=== PATIENT | male | born 1945 | race Caucasian/White ===

== ENCOUNTER 2022-12-29 09:24 | Outpatient (CLI) | payer MEDICARE, OTHER ==
--- NOTE | 2022-12-29 10:05 | Sleep Patient Instructions ---
Sleep Center Visit Summary - Patient Visit Information Reason for Visit: Initial consult for evaluation of sleep disordered breathing and other sleep issues. - Patient Instructions Instructions Attached: Sleep Study, Sleep Clinic Visit Additional Instructions: You will be completing a sleep study, either an in-lab polysomnography (PSG) or home sleep study (HST). You will follow-up in the sleep care office after the sleep study is completed to hear the results and talk about therapy, if needed. You will be called by our office staff to schedule this appointment, but you may contact us with any questions. - Clinic Information Contact: [facility] [address] [place] [address] [email or web address] T: [phone]
--- NOTE | 2022-12-29 10:07 | SLEEP CARE CONSULTATION ---
Information from patient questionnaire entered by Darryl Campbell. I have reviewed and concur with the information entered by Darryl Campbell. This document represents the service I personally performed and the decisions made by me, Bhavya Mohamud ARNP. History of Present Illness Service Date and Time: 12/29/2022 09 Reason for Visit: New patient Chief Complaint: reports: Unrefreshed sleep, Snoring, Observed pauses in breathing Date of Onset: YRS Usual bedtime: 9-10PM Time it takes to fall asleep: 5MIN Snores at night: Yes Observed to quit breathing while asleep: No Sleeps alone due to snoring: No Number of times waking at night: 2-3 Reasons for waking at night: reports: Snoring, Bathroom, Other (NOISE, UNKNOWN). denies: Choking, Gasping for air Toss, Turn, or Twitch while sleeping: No Recalls having dreams: Yes Usually gets out of bed at: 8AM Feels refreshed in the morning: No Morning headache: Yes (occasionally) Sleepy or fatigued during the day: Yes Ever fallen asleep while driving: No Takes day naps: No Dreams during day naps: No Prior sleep studies: No Additional HPI information: I had the pleasure of seeing DOROTEO WOODARD today regarding the possibility of him having a sleep disorder. His current complaints are unrefreshed sleep, snoring and observed pauses in breathing. He states he had his second heart attack in September 2022 and he was having a hard time keeping oxygen level up. He was advised that he should have this checked out. He had a previous heart attack 3 years prior. He snores and has for his lifetime. His has told him in last 50+ years that he snores loudly and will sometimes stop breathing. He has woke himself up snoring at least 1-2 times a week. He sleeps mostly on left side and back. - Parasomnia Symptoms Ever been unable to move upon waking from sleep: No Walks in sleep: No Talks in sleep: Yes (sometimes, not often) Ever acted out dreams in sleep: Yes (has been kicking feet in bed) Ever felt weak in the knees when startled or emotional: No Bothered by creepy, crawly, restless sensations in legs: Yes (has RLS, off/on) Problems with memory or concentration: Yes (short term memory not good) Subjective Initial [place] Sleepiness Scale score: 7 (11/21/22) Past Medical History Past Medical History: reports: Hypertension, Arthritis, Coronary Heart Disease (4 stents), Hypothyroidism, GERD, Other (STAGE 3 KIDNEY DISEASE, 2 HEART ATTACKS) Social History The patient's occupation is a RE. Patient is and lives in [place]. Have you smoked in the past 12 months: No Alcohol use: Yes Alcohol amount and frequency: 3 drinks daily/FREQUENTLY Caffeine use: No Family History Family history of sleep disordered breathing: No Family Hx Sleep Apnea: Father: Snoring Allergies and Home Medications Known drug allergies: No Drug allergies reviewed: Yes Home medication list reviewed: Yes (see updated list in EMR) Review of Systems Weight gain over past 5 years: 10 Cardiovascular: reports: high blood pressure Gastrointestinal: reports: heartburn, diarrhea Urinary: reports: frequency Neurological: denies: headaches, head trauma Psychiatric: denies: anxiety, depression Ear/Nose/Throat: reports: dry mouth/throat, tonsillectomy (and adenoidectomy x 2), wisdom teeth removed Endocrine: reports: thyroid disease, sluggishness, too hot or cold, excessive thirst, increased appetite Musculoskeletal: reports: neck pain, back pain Physical Exam Vital signs obtained and entered by: DARRYL Begum MA Blood Pressure: 124/78 (LEFT ARM) Cuff size: regular Heart Rate: 63 O2 Saturation: 96 Height: 5 ft Weight: 154 lb 9.6 oz Body Mass Index: 30.2 BMI Classification: Obese Neck circumference: 15.25 Mouth and throat: narrow oropharynx Soft palate: long Hard palate: normal Uvula: normal Uvula visualization: 0% Mallampati Class IV Tongue: enlarged in size with teeth avelar on lateral edges Tonsils: absent bilaterally Neck: normal w/o lymphadenopathy or thyromegaly Heart: regular rate and rhythm Lungs: clear bilaterally Impression and Plan 1. Suspected Obstructive Sleep Apnea-Hypopnea Syndrome, as suggested by a history of loud and irregular snoring, observed cessation of breath while asleep, unrefreshed sleep, cognitive impairment, and excessive daytime sleepiness. Narrow oropharynx and obesity are common predisposing factors for obstructive sleep apnea-hypopnea syndrome. I recommend proceeding to polysomnography to confirm the diagnosis and to assess severity. If the patient has significant sleep disordered breathing, a manual CPAP titration study will also be performed to find the optimal treatment pressure. I informed the patient of what the sleep studies involve and after some discussion, obtained agreement to proceed. The pathophysiology of obstructive sleep apnea-hypopnea syndrome was discussed with the patient and health risks of cardiovascular and cerebrovascular disease if not treated. Risks of drowsy driving discussed in detail and patient advised to avoid long distance driving and to drum puller at the first sign of drowsiness. Patient agreed to plan. * Schedule polysomnography +- manual CPAP titration study and return in 1-2 weeks after the study to discuss result and initiate therapy. * Avoid long distance driving or driving when feeling sleepy. * Avoid alcohol, sedative and muscle relaxant around bedtime. * Attempt to lose weight. * Review instructions provided by trained office staff on how to prepare for the sleep study. * Return for follow-up after sleep study completed. Counseling Topics: Weight loss health impact Visit Type: In Office Time Spent with Patient (minutes): 30 Provider Statement: I spent 100% of the Face to Face Visit with the patient with greater than 50% spent counseling the patient and coordination of care.
[2022-12-29 10:09] VITALS: BP 124/78
== END 2022-12-29 09:25 | disposition home or self-care (01) ==
LOC: SC 09:24
PROVIDERS: ATTEND Nurse Practitioner Family
DX: R53.83 Other fatigue (principal); R06.83 Snoring; G47.8 Other sleep disorders; R06.81 Apnea, not elsewhere classified; I10 Essential (primary) hypertension; I25.10 Atherosclerotic heart disease of native coronary artery without angina pectoris; E66.9 Obesity, unspecified; Z68.30 Body mass index [BMI] 30.0-30.9, adult
CPT/HCPCS: 99203; G0463; 99212

== ENCOUNTER 2023-01-10 19:05 | Outpatient (CLI) | payer MEDICARE, OTHER | END 2023-01-10 19:06 | disposition home or self-care (01) | LOC: SC 19:05 | PROVIDERS: ATTEND Nurse Practitioner Family | DX: G47.33 Obstructive sleep apnea (adult) (pediatric) (principal); G47.61 Periodic limb movement disorder; E66.9 Obesity, unspecified; Z68.30 Body mass index [BMI] 30.0-30.9, adult | CPT/HCPCS: 95810 ==

== ENCOUNTER 2023-02-26 09:45 | Outpatient (CLI) | payer MEDICARE, OTHER ==
--- NOTE | 2023-02-26 10:14 | Sleep Patient Instructions ---
Sleep Center Visit Summary - Patient Visit Information Reason for Visit: Sleep Study Followup - Patient Instructions Instructions Attached: CPAP Dc, CPAP Additional Instructions: You are being started on CPAP therapy with pressure setting at 4-15 cmH2O. You will need to call the sleep care office to set up your follow up once you have your APAP machine and we will schedule a visit to check compliance and response to therapy at that time. You may call the office with any concerns about pressure feeling too low or too much for adjustment, if needed. You should contact DME for any questions or concerns about mask or equipment. Please call to make a follow up in the sleep care office for a month after starting CPAP therapy. - Clinic Information Contact: [facility] [address] [place] [address] [email or web address] T: [phone]
--- NOTE | 2023-02-26 10:18 | SLEEP CARE CONSULTATION ---
Information from patient questionnaire entered by Alessandra Campbell. I have reviewed and concur with the information entered by Alessandra Campbell. This document represents the service I personally performed and the decisions made by me, Bhavya Mohamud ARNP. History of Present Illness Service Date and Time: 02/26/2023 0945 Initial [place] Sleepiness Scale score: 7 (11/21/22) Current [place] Sleepiness Scale score: 5 (02/26/23) Additional HPI information: DOROTEO WOODARD returns for follow up and results of the recently performed polysomnography. PSG showed moderate obstructive sleep apnea with an average AHI of 20.1 and michell oxygen saturation of 69%. He also had severe periodic leg movements of sleep that did not fragment sleep architecture. I explained the pathophysiology behind obstructive sleep apnea. We then spent quite a bit of time discussing different treatment options. For mild obstructive sleep apnea, surgery and oral appliance are alternatives to nasal CPAP therapy but in moderate or severe cases, nasal CPAP is the most effective and reliable treatment. Because apnea is primarily in supine position, then positional management therapy could be effective. Methods discussed such as positioning with pillows, using a T-shirt with tennis balls in the back or commercial products that have a pillow format on back to prevent supine sleep. I reviewed the impact of weight changes on sleep apnea and strongly recommended losing weight. After some discussion, the patient opted to go with the nasal CPAP therapy. Nasal autoCPAP set at 4-15 cmH20 will be ordered with rationale explained. A manual titration study will be ordered if unable to find optimal pressure with office adjustments. I explained how CPAP machine works and what to expect when using the machine. Using CPAP every night in order to get used to it was emphasized. Patient advised to put CPAP mask on before getting into bed so as not to fall asleep without CPAP. To assist acclimation to CPAP use, it could also be used for a short time during day while reading or watching TV. The patient was instructed to call the CPAP supplier to discuss any mechanical problem that may occur. If the mask given is uncomfortable or is difficult to keep on through the night even with adjustment, contact the CPAP supplier as many will replace with another mask style if notified before 30 days. If snoring or perceives is not getting enough air or too much air from the machine, notify this office. Patient counseled not drink alcohol less than 4 hours before bedtime as it can increase snoring and apnea. Patient was cautioned about risks of drowsy driving until sleepiness symptoms resolve. Patient denies drowsy driving. Sleep Study - Results Type of Sleep Study: Polysomnography (COMPLETED 01/10/23) Prior sleep studies: No Polysomnography/Home Sleep Study results: IMPRESSION: The quality of the study is good. The patient had normal sleep efficiency. The sleep architecture was abnormal for sleep fragmentation and reduced amount of time spent in slow wave sleep (N3). Respiratory monitoring showed moderate obstructive sleep apnea-hypopnea (AHI = 20.1) associated with frequent arousals, oxyhemoglobin desaturation and moderate hypoxia (michell oxygen saturation of 69%) . Baseline oxygen saturation was normal. The respiratory events occurred predominantly during supine sleep (supine AHI = 30.5; non-supine = 8.56). Snore was light to moderate intensity. There was severe periodic leg movement of sleep not contributing to the sleep fragmentation. Cardiac rhythm was sinus rhythm without significant arrhythmia with frequent multifocal premature ventricular contractions. No abnormal behavior (parasomnia) observed during the night. Allergies and Home Medications Known drug allergies: Yes (codeine) Drug allergies reviewed: Yes Home medication list reviewed: Yes (no changes) Allergy and home medication list: Allergies codeine Adverse Reaction (Verified 02/25/23 14:46) Nausea Review of Systems Review of systems same as previous: Yes (no changes) Physical Exam Vital signs obtained and entered by: ALESSANDRA Begum MA Blood Pressure: 130/80 (LEFT ARM) Cuff size: regular Heart Rate: 66 O2 Saturation: 98 Height: 5 ft Weight: 150 lb 12.8 oz Body Mass Index: 29.4 BMI Classification: Overweight Impression and Plan 1. Obstructive Sleep Apnea-Hypopnea Syndrome, moderate, with lowest oxygen saturation of 69%. Positive pressure therapy could benefit hypertension, cardiac disease ([place], CHD) and gastric reflux. As mentioned above, the patient will be started on nasal autoCPAP therapy with pressure set at 4-15 cmH2O. Compliance guidelines also reviewed. A copy of compliance guidelines will be given for reference at check out. Because the apnea is more severe supine, I instructed to avoid sleeping supine using pillow positioning until able to start CPAP use. 2. Hypoxemia, moderate, with a michell oxygen saturation of 69% and 57.3 minutes spent under 90%. His baseline oxygen saturation was normal with an average oxygen saturation of 90%. 3. Periodic limb movement, severe, that did not fragment patients sleep. Periodic limb movement of sleep (PLMS) is characterized by episodes of repetitive limb movements that occur during sleep and usually involve the lower limbs. The etiology is unknown. Caffeine can aggravate PLMS and should be avoided. Sleep hygiene methods can also improve sleep as well as lifestyle changes such as regular exercise. Patient was advised that no treatment is needed at this time. If symptoms increase, then further evaluation is indicated. * Nasal auto CPAP therapy, pressure at 4-15 cm H2O. * Attempt to lose weight. * Avoid alcohol consumption near bedtime. * Avoid supine sleep until using CPAP. * The patient is again cautioned about driving until sleepiness completely resolves. * Return one month after CPAP obtained. I will assess response to therapy and compliance at that time. Counseling Topics: Sleeping position, Weight loss health impact Prescriptions: Auto CPAP Visit Type: In Office Time Spent with Patient (minutes): 23 Provider Statement: I spent 100% of the Face to Face Visit with the patient with greater than 50% spent counseling the patient and coordination of care.
[2023-02-26 10:23] VITALS: BP 130/80
== END 2023-02-26 09:46 | disposition home or self-care (01) ==
LOC: SC 09:45
PROVIDERS: ATTEND Nurse Practitioner Family
DX: G47.33 Obstructive sleep apnea (adult) (pediatric) (principal); R09.02 Hypoxemia; G47.61 Periodic limb movement disorder
CPT/HCPCS: 99213; G0463; 99212

== ENCOUNTER 2023-06-03 10:42 | Outpatient (CLI) | payer MEDICARE, OTHER ==
--- NOTE | 2023-06-03 11:11 | Sleep Patient Instructions ---
Sleep Center Visit Summary - Patient Visit Information Reason for Visit: First Compliance Visit - Patient Instructions Additional Instructions: You were here for follow up of CPAP therapy. You will be continued on CPAP therapy with pressure at 8-10 cmH2O. Please let us know if the pressure change is uncomfortable and we can make further adjustments of the pressure. You should follow up with sleep care in 1-2 months. You may contact us sooner for any questions or concerns. - Clinic Information Contact: [facility] [address] [place] [id number] [email or web address] T: [phone]
--- NOTE | 2023-06-03 11:14 | SLEEP CARE CONSULTATION ---
Information from patient questionnaire entered by Alessandra Campbell. I have reviewed and concur with the information entered by Alessandra Campbell. This document represents the service I personally performed and the decisions made by , Bhavya Mohamud ARNP. History of Present Illness Service Date and Time: 06/03/2023 1042 Previous diagnosis: Moderate, Obstructive Sleep Apnea-Hypopnea Syndrome AHI: 20.1 (03/2023) Reason for follow up: first compliance (SET UP ) Equipment type: CPAP (RESMED Airsense 11; s/u 03/2023) Equipment obtained from: Other ([facility]) Mask style: Nasal (over the nose, medium cushion) Backup mask available: No (will keep old mask when replaced) Prior sleep studies: No Type of Sleep Study: Polysomnography (COMPLETED 01/10/23) HPI additional information: DOROTEO WOODARD was diagnosed to have moderate, AHI 20.1, obstructive sleep apnea- hypopnea syndrome and returned today for CPAP therapy first compliance follow- up. Sleep Study - Results Type of Sleep Study: Polysomnography (COMPLETED 01/10/23) Prior sleep studies: No CPAP Compliance Data - Data Reviewed with Patient Average duration of nightly device use: 6 HRS 43 MINS Compliance rate %: 70 (03/03/23-04/01/23 (compl period)) Current pressure setting (cmH2O): 4-15 (median 5.8, avg 8.2, max 9.5) Average residual AHI: 0.4 Central apnea: 0.1 Obstructive apnea: 0.2 Hypopnea: 0.1 Average large leak: 0.3 L/min Subjective Missed days of use due to: reports: travel Patient concerns: reports: mask discomfort, condensation in mask/hose. denies: aerophagia, air blowing in eyes, mask leak noise, nasal congestion, dry mouth, nose, throat, epistaxis Observed to snore while using device: No Current pressure setting perceived as: comfortable On therapy, patient: reports: other (not feeling difference at this time) Initial [place] Sleepiness Scale score: 7 (11/21/22) Current [place] Sleepiness Scale score: 2 Allergies and Home Medications Known drug allergies: Yes (as listed) Drug allergies reviewed: Yes Home medication list reviewed: Yes (no changes) Allergy and home medication list: Allergies codeine Adverse Reaction (Verified 06/02/23 11:22) Nausea Review of Systems Review of systems same as previous: Yes (no changes) Physical Exam Vital signs obtained and entered by: BHAVYA ROSS Blood Pressure: 150/90 Cuff size: regular (left arm) Heart Rate: 63 O2 Saturation: 97 Height: 5 ft Weight: 156 lb 3.2 oz Body Mass Index: 30.4 BMI Classification: Obese Impression and Plan 1. Obstructive Sleep Apnea-Hypopnea Syndrome, moderate, with good treatment compliance and good apnea control. On CPAP therapy, the patient has decreased [place] from 02/22 to 2. The patients pressure will be changed to autoCPAP 8- 10 cmH20 to reflect pressure being used. Patient advised to contact me if pressure change is uncomfortable so that it can be adjusted. Goals for apnea control discussed. Patient's apnea severity and rationale for treatment to reduce apnea, improve sleep quality and reduce cardiovascular and cerebrovascular events was reviewed. I also reviewed the benefit of consistent device use of CPAP for hypertension, cardiac disease ([place], CHD) and [gastric reflux. 2. Obesity, unspecified. Currently patients BMI is 30.4. Obesity increases the risk of apnea, CPAP pressure requirements and overall health risks especially cardiovascular and diabetes. Thus patient is advised to lose weight. * Change auto CPAP pressure to 8-10 cmH2O * Notify me if snoring with mask or feeling that the pressure is too much or too little * Attempt to lose weight * Call this office if any problems using CPAP * Return for follow up in 1-2 months, or sooner if concerns arise Counseling Topics: Spare mask, Weight loss health impact Follow up with Sleep Care in: 1-2 months Visit Type: In Office Time Spent with Patient (minutes): 24 Provider Statement: I spent 100% of the Face to Face Visit with the patient with greater than 50% spent counseling the patient and coordination of care.
[2023-06-03 11:21] VITALS: BP 150/90; O2SAT 97
== END 2023-06-03 10:43 | disposition home or self-care (01) ==
LOC: SC 10:42
PROVIDERS: ATTEND Nurse Practitioner Family
DX: G47.33 Obstructive sleep apnea (adult) (pediatric) (principal); E66.9 Obesity, unspecified; Z68.30 Body mass index [BMI] 30.0-30.9, adult
CPT/HCPCS: 99213; G0463; 99212

== ENCOUNTER 2023-08-04 10:35 | Outpatient (CLI) | payer MEDICARE, OTHER ==
--- NOTE | 2023-08-04 11:01 | Sleep Patient Instructions ---
Sleep Center Visit Summary - Patient Visit Information Reason for Visit: 2-month follow-up - Patient Instructions Additional Instructions: You were here for follow up of CPAP therapy. You will be continued on CPAP therapy with pressure at 8-10 cmH2O. You should follow up with sleep care in 3 months. You may contact us sooner for any questions or concerns. - Clinic Information Contact: [facility] [address] [place] [address] [email or web address] T: [phone]
[2023-08-04 11:04] VITALS: BP 152/97; O2SAT 99
--- NOTE | 2023-08-04 11:04 | SLEEP CARE CONSULTATION ---
Information from patient questionnaire entered by Darryl Campbell. I have reviewed and concur with the information entered by Darryl Campbell. This document represents the service I personally performed and the decisions made by , Bhavya Mohamud ARNP. History of Present Illness Service Date and Time: 08/04/2023 1035 Previous diagnosis: Moderate, Obstructive Sleep Apnea-Hypopnea Syndrome AHI: 20.1 (12/2022) Reason for follow up: other (2 MONTH F/U) Equipment type: CPAP (RESMED Airsense 11, s/u 03/2023) Equipment obtained from: Other ([facility]) Mask style: Nasal (over the nose) Backup mask available: No Last cushion change: rotating with 3 cushions Prior sleep studies: No Type of Sleep Study: Polysomnography (COMPLETED 01/10/23) HPI additional information: DOROTEO WOODARD was diagnosed to have moderate, AHI 20.1, obstructive sleep apnea- hypopnea syndrome and returned today for CPAP therapy two month with pressure change follow-up. Sleep Study - Results Type of Sleep Study: Polysomnography (COMPLETED 01/10/23) Prior sleep studies: No CPAP Compliance Data - Data Reviewed with Patient Average duration of nightly device use: 7 HRS 10 MINS Compliance rate %: 88 (06/04/23-08/02/23; 59/60 days used) Current pressure setting (cmH2O): 8-10 Average residual AHI: 0.3 Central apnea: 0.1 Obstructive apnea: 0.1 Average large leak: 1.1 L/min Subjective Missed days of use due to: reports: travel Patient concerns: reports: mask discomfort (redness on top of nose), mask leak noise ( hears mask exhaust). denies: aerophagia, air blowing in eyes, condensation in mask/hose, nasal congestion, dry mouth, nose, throat, epistaxis Observed to snore while using device: No Current pressure setting perceived as: comfortable On therapy, patient: reports: sleeping better, awakening more refreshed, being more awake and alert during the day, more rested overall. denies: drowsiness while driving Initial [place] Sleepiness Scale score: 7 (11/21/22) Current [place] Sleepiness Scale score: 6 (08/04/23) Allergies and Home Medications Known drug allergies: Yes (codeine) Drug allergies reviewed: Yes Home medication list reviewed: Yes (no changes) Allergy and home medication list: Allergies codeine Adverse Reaction (Verified 08/03/23 09:55) Nausea Review of Systems Review of systems same as previous: Yes (NO CHANGE) Physical Exam Vital signs obtained and entered by: DARRYL Begum MA Blood Pressure: 152/97 (RIGHT ARM) Cuff size: regular Heart Rate: 72 O2 Saturation: 99 Height: 5 ft Weight: 161 lb 6.4 oz Body Mass Index: 31.5 BMI Classification: Obese Impression and Plan 1. Obstructive Sleep Apnea-Hypopnea Syndrome, moderate, with good treatment compliance and good apnea control. On CPAP therapy, the patient has better sleep quality and is more rested overall. Patient has significant improvement of their sleep apnea and is satisfied with current CPAP therapy. He does get a little bit of soreness on the top of his nose from the mask cushion but he says it is not a problem. He has not yet got any supplies from [employer] and I encouraged him to reach out to get replacements for his nasal cushion since they will wear out and start leaking more. He voiced understanding. I will have him follow-up in about 3 months. Patient's apnea severity and rationale for treatment to reduce apnea, improve sleep quality and reduce cardiovascular and cerebrovascular events was reviewed. I also reviewed the benefit of consistent device use of CPAP for hypertension, cardiac disease ([place], CHD) and gastric reflux. 2. Obesity, unspecified. Currently patients BMI is 31.5. Obesity increases the risk of apnea, CPAP pressure requirements and overall health risks especially cardiovascular and diabetes. Thus patient is advised to lose weight. * Continue auto CPAP pressure at 8-10 cmH2O * Notify me if snoring with mask or feeling that the pressure is too much or too little * Attempt to lose weight * Call this office if any problems using CPAP * Return for follow up in 3 months, or sooner if concerns arise Counseling Topics: Spare mask, Weight loss health impact Follow up with Sleep Care in: 3 months Visit Type: In Office Time Spent with Patient (minutes): 16 Provider Statement: I spent 100% of the Face to Face Visit with the patient with greater than 50% spent counseling the patient and coordination of care.
== END 2023-08-04 10:36 | disposition home or self-care (01) ==
LOC: SC 10:35
PROVIDERS: ATTEND Nurse Practitioner Family
DX: G47.33 Obstructive sleep apnea (adult) (pediatric) (principal); E66.9 Obesity, unspecified; Z68.31 Body mass index [BMI] 31.0-31.9, adult
CPT/HCPCS: 99212; G0463

== ENCOUNTER 2023-11-02 11:17 | Outpatient (CLI) | payer MEDICARE, OTHER ==
--- NOTE | 2023-11-02 11:41 | Sleep Patient Instructions ---
Sleep Center Visit Summary - Patient Visit Information Reason for Visit: 3-month follow-up - Patient Instructions Additional Instructions: You were here for follow up of CPAP therapy. You will be continued on CPAP therapy with pressure at 8-10 cmH2O. I have written for a mask re-fitting. Your CPAP supply company should reach out to you to complete this, let us know if you have any issues. You should follow up with sleep care in 6 months. You may contact us sooner for any questions or concerns. - Clinic Information Contact: [facility] [address] [place] [address] [email or web address] T: [phone]
--- NOTE | 2023-11-02 11:46 | SLEEP CARE CONSULTATION ---
Information from patient questionnaire entered by Darryl Campbell. I have reviewed and concur with the information entered by Darryl Campbell. This document represents the service I personally performed and the decisions made by , Bhavya Mohamud ARNP. History of Present Illness Service Date and Time: 11/02/2023 1117 Previous diagnosis: Moderate, Obstructive Sleep Apnea-Hypopnea Syndrome AHI: 20.1 (12/2022) Reason for follow up: three month (F/U) Equipment type: CPAP (RESMED Airsense 11, s/u 03/2023) Equipment obtained from: Other ([facility]; getting supplies) Mask style: Nasal (over the nose) Backup mask available: Yes Last cushion change: few months Prior sleep studies: No Type of Sleep Study: Polysomnography (COMPLETED 01/10/23) HPI additional information: DOROTEO WOODARD was diagnosed to have moderate, AHI 20.1, obstructive sleep apnea- hypopnea syndrome and returned today for CPAP therapy three month follow-up. Sleep Study - Results Type of Sleep Study: Polysomnography (COMPLETED 01/10/23) Prior sleep studies: No CPAP Compliance Data - Data Reviewed with Patient Average duration of nightly device use: 9 HRS 5 MINS Compliance rate %: 91 (07/31/23-10/28/23; 85/90 days used) Current pressure setting (cmH2O): 8-10 Average residual AHI: 0.5 Central apnea: 0.1 Obstructive apnea: 0.2 Hypopnea: 0.2 Average large leak: 1.9 L/min Subjective Patient concerns: reports: mask discomfort, mask leak noise. denies: aerophagia, air blowing in eyes, condensation in mask/hose, nasal congestion, dry mouth, nose, throat, epistaxis Observed to snore while using device: No Current pressure setting perceived as: comfortable On therapy, patient: reports: sleeping better, more rested overall. denies: drowsiness while driving Initial [place] Sleepiness Scale score: 7 (11/21/22) Current [place] Sleepiness Scale score: 4 (11/02/23) Allergies and Home Medications Known drug allergies: Yes (codeine) Drug allergies reviewed: Yes Home medication list reviewed: Yes (no changes) Allergy and home medication list: Allergies codeine Adverse Reaction (Verified 10/29/23 10:00) Nausea Review of Systems Review of systems same as previous: Yes (NO CHANGE) Physical Exam Vital signs obtained and entered by: DARRYL Begum MA Blood Pressure: 133/85 (LEFT ARM) Cuff size: regular Heart Rate: 65 O2 Saturation: 100 Height: 5 ft Weight: 162 lb Body Mass Index: 31.6 BMI Classification: Obese Impression and Plan 1. Obstructive Sleep Apnea-Hypopnea Syndrome, moderate, with good treatment compliance and good apnea control. On CPAP therapy, the patient has better sleep quality and is more rested overall. He states his mask is working but he gets some leaking that wake him up at night. He would like to also have a mask with less headgear strapping on his head. I will write for a mask refitting to see if he can find a different mask that he would find more comfortable. Patient has significant improvement of their sleep apnea and is satisfied with current CPAP therapy. Patient's apnea severity and rationale for treatment to reduce apnea, improve sleep quality and reduce cardiovascular and cerebrovascular events was reviewed. I also reviewed the benefit of consistent device use of CPAP for hypertension, cardiac disease (CT, CHD), gastric reflux. 2. Obesity, unspecified. Currently patients BMI is 31.6. Obesity increases the risk of apnea, CPAP pressure requirements and overall health risks especially cardiovascular and diabetes. Thus patient is advised to lose weight. * Continue auto CPAP pressure at 8-10 cmH2O * Mask refitting * Notify me if snoring with mask or feeling that the pressure is too much or too little * Attempt to lose weight * Call this office if any problems using CPAP * Return for follow up in 6 months, or sooner if concerns arise Counseling Topics: Weight loss health impact Prescriptions: Other (Mask refitting) Follow up with Sleep Care in: 6 months Visit Type: In Office Time Spent with Patient (minutes): 20 Provider Statement: I spent 100% of the Face to Face Visit with the patient with greater than 50% spent counseling the patient and coordination of care.
[2023-11-02 11:55] VITALS: BP 133/85; O2SAT 100
== END 2023-11-02 11:18 | disposition home or self-care (01) ==
LOC: SC 11:17
PROVIDERS: ATTEND Nurse Practitioner Family
DX: G47.33 Obstructive sleep apnea (adult) (pediatric) (principal); E66.9 Obesity, unspecified; Z68.31 Body mass index [BMI] 31.0-31.9, adult
CPT/HCPCS: 99213; G0463; 99212